=== PATIENT | female | born 1995 | race Hispanic/Latino ===

== ENCOUNTER 2023-05-04 17:30 | Inpatient (IN) | payer OTHER ==
[~2023-05-04] VITALS: Ht 160 cm; Wt 104.3 kg
[2023-05-04 19:21] LABS: HEMATOCRIT 37.8 % (36-48); MEAN CORPUSCULAR HEMOGLOBIN 27.3 pg (27.0-33.0); MEAN CORPUSCULAR HGB CONC 32.8 g/dL (32.0-36.0); MEAN CORPUSCULAR VOLUME 83.3 fL (79-99); RED BLOOD CELL COUNT(AUTO) 4.54 MIL/uL (4.00-5.50); RED CELL DISTRIBUTION WIDTH 14.2 % (11.0-15.5)
[2023-05-04] MEDS ORDERED: LACTATED RINGERS 1000ML 1,000 ML IV PRN (19:30)
[2023-05-04 20:15] LABS: APPEARANCE,URINE CLEAR (CLEAR); BILIRUBIN,URINE NEGATIVE (NEGATIVE); COLOR,URINE LIGHT-YELLOW (YELLOW); GLUCOSE, URINE (UA) NEGATIVE (NEGATIVE); KETONES,URINE NEGATIVE (NEGATIVE); LEUKOCYTE ESTERASE ,URINE NEGATIVE Leu/uL (NEGATIVE); NITRATE,URINE NEGATIVE (NEGATIVE); OCCULT BLOOD,URINE NEGATIVE (NEGATIVE); PROTEIN,URINE NEGATIVE (NEGATIVE); UROBILINOGEN,URINE 0.2 mg/dL (0.2-1.0)
[2023-05-04 20:18] LABS: ADD UA MICROSCOPIC NO
[2023-05-04 20:21] LABS: HIV 1&2 ANTIBODY Non-Reactive (Negative); HIV-1 p24 Antigen Non-Reactive (Negative)
[2023-05-04] MEDS ORDERED: LIDOCAINE HCL 400MG/20ML VIAL ONE (23:08)
[2023-05-04] MEDS ORDERED: OXYTOCIN-LR 30 UNITS/500ML 500 ML IV ONE (23:09)
[2023-05-05] MEDS ORDERED: LANOLIN 30GM OINTMENT TP PRN
[2023-05-05] MEDS ORDERED: WITCH HAZEL 1 PAD TP PRN
[2023-05-05] MEDS ORDERED: ACETAMINOPHEN 325 MG TAB PO PRN
[2023-05-05] MEDS ORDERED: MEASLES/MUMPS/RUBELLA VACCINE, LIVE 0.5 ML/VIAL SQ PRN
[2023-05-05] MEDS ORDERED: IBUPROFEN 600 MG TABLET PO PRN
[2023-05-05] MEDS ORDERED: DIPH,PERTUSS(ACELL),TET VAC/PF 0.5 ML VIAL IM PRN
[2023-05-05] MEDS ORDERED: ACETAMINOPHEN WITH CODEINE 1 TAB TAB PO PRN
[2023-05-05] MEDS ORDERED: BENZOCAINE/LANOLIN/ALOE VERA 60 ML AEROSOL TP PRN
[2023-05-05 04:10] VITALS: BP 121/56; PULSE 100; RESP 17
[2023-05-05 07:48] VITALS: BP 127/72; PULSE 91; RESP 16
[2023-05-05 07:54] LABS: HEMATOCRIT 29.8 % (36-48); MEAN CORPUSCULAR HEMOGLOBIN 27.9 pg (27.0-33.0); MEAN CORPUSCULAR HGB CONC 33.6 g/dL (32.0-36.0); MEAN CORPUSCULAR VOLUME 83.2 fL (79-99); RED BLOOD CELL COUNT(AUTO) 3.58 MIL/uL (4.00-5.50); RED CELL DISTRIBUTION WIDTH 14.1 % (11.0-15.5)
[2023-05-05] MEDS: DOCUSATE SODIUM 100 MG CAP PO SCH ×2 (07:55→20:04)
[2023-05-05 10:49] LABS: RAPID PLASMA REAGIN NONREACTIVE (NONREACTIVE)
[2023-05-05 11:56] VITALS: BP 114/70; PULSE 92; RESP 16
[2023-05-05 15:50] VITALS: BP 139/81; PULSE 91; RESP 16
[2023-05-05 19:30] VITALS: BP 126/72; PULSE 75; RESP 18
[2023-05-06] VITALS: BP 114/74; PULSE 103; RESP 18
[2023-05-06 04:01] VITALS: BP 112/62; PULSE 85; RESP 18
[2023-05-06] MEDS ORDERED: IBUP-2070 PO (07:48)
[2023-05-06] MEDS: DOCUSATE SODIUM 100 MG CAP PO SCH (08:03)
[2023-05-06 08:05] VITALS: BP 121/81; PULSE 98; RESP 16
== END 2023-05-06 11:25 | disposition home or self-care (01) | DRG 807 ==
LOC: EDH 17:30 → OBSVTOIN 17:31 → LDH 17:31 → WSH 05-05 03:01
PROVIDERS: ADMIT Obstetrics & Gynecology; ATTEND Obstetrics & Gynecology
PROC: 10E0XZZ Delivery of Products of Conception, External Approach (ICD-10-PCS; principal; 2023-05-04)
DX: O71.82 Other specified trauma to perineum and vulva (principal); Z37.0 Single live birth; Z3A.38 38 weeks gestation of pregnancy
CPT/HCPCS: 36415; 81003; 85027; 86592; 86701; 86850; 86900; 86901; 87340; 87390; G0378; J3490